=== PATIENT | female | born 1990 | race Caucasian/White ===

== ENCOUNTER 2023-03-21 16:11 | Emergency (ER) | payer MEDICAID, SELFPAY ==
[2023-03-21 16:18] VITALS: BP 133/87; PULSE 77; RESP 16; TEMP 36.7; O2SAT 100; BMI 28.3
[2023-03-21 17:10] VITALS: BP 144/105; PULSE 77; RESP 16; O2SAT 100
--- NOTE | 2023-03-21 17:23 | USR_ITS ---
PROCEDURE INFORMATION: Exam: US Abdomen, Limited; Right Upper Quadrant Exam date and time: 03/21/2023 5:41 PM Age: 32 years old Clinical indication: Abdominal pain; Other: Ruq; Additional info: Ruq pain, n/v with ruq pain. Previous gallbladder issues. Hida in sept TECHNIQUE: Imaging protocol: Real time ultrasound of the abdomen with image documentation. Limited exam focused on the right upper quadrant. COMPARISON: No relevant prior studies available. FINDINGS: Liver: Unremarkable. Gallbladder: No gallstones. No gallbladder wall thickening or pericholecystic fluid. Negative sonographic Bain's sign, as per the performing explosives engineer. Biliary ducts: Normal. No stones. No dilation. Pancreas: Unremarkable as visualized. Right kidney: No mass. No definite stones. No hydronephrosis. US/US abdomen limited [id number] IMPRESSION: No acute sonographic findings.
[2023-03-21 17:29] LABS: Erythrocyte Sedimentation Rate 1 mm/hr (0-15)
[2023-03-21 17:31] LABS: Basophils % 0.4 %; Eosinophils # 0.2 10^3/uL (0.0-0.8); Eosinophils % 2.9 %; Hematocrit 40.5 % (37.0-47.0); Hemoglobin 13.2 g/dL (11.5-15.3); Lymphocytes # 2.1 10^3/uL (0.8-4.8); Lymphocytes % 26.4 %; Mean Corpuscular HGB Conc 32.6 g/dL (30.0-36.0); Mean Platelet Volume 10.2 fL (7.4-10.4); Monocytes # 0.6 10^3/uL (0.2-0.9); Monocytes % 7.1 %; Neutrophils # 4.95 10^3/uL (1.8-7.7); Neutrophils % 63.1 %; Nucleated Red Blood Cells % 0 %; Platelet Count 220 10^3/cmm (130-400); Red Blood Count 4.88 10^6/uL (4.1-5.3); White Blood Count 7.9 10^3/uL (4.0-10.0)
[2023-03-21 17:52] LABS: Alanine Aminotransferase 11 U/L (0-33); Albumin Level 4.5 g/dL (3.5-5.2); Alkaline Phosphatase 56 U/L (35-105); Anion Gap 14.6 (5-19); Aspartate Amino Transferase 10 U/L (0-32); Blood Urea Nitrogen 8 mg/dL (6-20); Carbon Dioxide 24 mmol/L (22-29); Chloride 104 mmol/L (98-107); Glomerular Filtration Rate 114.4 mL/min (90-130); Glucose 76 mg/dL (65-115); Lipase 24 U/L (13-60); Osmolality Calculated 285 mOsm/kg (285-295); Potassium 3.6 mmol/L (3.5-5.1); Sodium 139 mmol/L (136-145); Total Bilirubin 0.6 mg/dL (0.15-1.2); Total Protein 7.5 g/dL (6.6-8.7)
[2023-03-21 18:15] LABS: HCG Qualitative Urine. Negative (Negative)
[2023-03-21] MEDS: sodium chloride 0.9% 1,000 ML 999 ML IV (18:25)
[2023-03-21] MEDS: ketorolac 30 mg/mL INJ 15 MG IVP (18:25)
[2023-03-21 18:26] VITALS: BP 119/78; PULSE 69; RESP 16; O2SAT 100
[2023-03-21 18:45] LABS: Glucose Urine UA Norm (Normal); Ketones Urine 1+ (Negative); Protein Urine Neg (Negative); Specific Gravity, Urine 1.025 (1.005-1.030); Urine Appearance Hazy (CLEAR); Urine Color Yellow (Yellow); pH Urine 5 (5-7)
[2023-03-21 18:46] LABS: Add Urine Microscopic? YES; Amphetamines Screen Urine Negative (Negative); Barbiturates Screen Urine Negative (Negative); Benzodiazepines Screen Urine Negative (Negative); Bilirubin Urine Neg (Negative); Blood Urine Neg (Negative); Cocaine Screen Urine Negative (Negative); Leukocyte Esterase Urine 2+ (Negative); Nitrate Urine Negative (Negative); Opiate Screen Urine Negative (Negative); PCP Screen Urine Negative (Negative); Squamous Epithelial Cell Urine 15-25 /hpf (0-5); THC Screen Urine Negative (Negative); Urobilinogen Urine Norm (Negative)
[2023-03-21 18:47] LABS: Bacteria Urine 2+ /hpf; Mucus Urine 1+ /hpf
[2023-03-21 18:48] LABS: RBC Urine 0-4 /hpf (0-2); WBC Urine 25-40 /hpf (0-5)
--- NOTE | 2023-03-21 19:24 | W.ED.ABDPA2 ---
HPI - Abdominal Pain General: Chief Complaint: Abdominal Pain Stated Complaint: abd pain/N &V Time Seen by Provider: 03/21/23 17:14 Source: patient Mode of arrival: ambulatory Limitations: no limitations History of Present Illness: Patient presents the emergency department today accompanied by family for evaluation treatment of recurrence of right upper quadrant pain. Patient states that for the last year and a half she has had issues with recurrent right upper quadrant pain. She reports 4 previous evaluations for this and states she was told she had a bad gallbladder. However, she was at the time her symptoms started and they indicated they would not be able to intervene until after her . She states that after delivering her child, previous work-ups have found no acute concerns and she is scheduled to see GI and have a HIDA scan in May. Patient states that the last 48 hours she has had severe pain resulting in significant nausea. She has also had some diarrhea today. She denies fevers. Review of Systems General: Reports: 10 or more systems reviewed and unremarkable except in HPI and below Physical Exam Const: COMMON NORMALS: no acute distress, patient oriented x3 and alert HENMT: COMMON NORMALS: normocephalic, atraumatic, hearing grossly normal bilaterally and moist oral mucous membranes HEAD & SCALP: normocephalic and atraumatic Eye: COMMON NORMALS: Equal, round and reactive pupils present, EOMs intact bilaterally and conjunctivae normal CONJUNCTIVA: Yes conjunctivae normal PUPIL: Yes Equal, round and reactive pupils present Neck/C-Spine: COMMON NORMALS: full ROM and no JVD Lymph: LYMPHATIC: no lymphadenopathy noted Resp: COMMON NORMALS: normal respiratory effort, No retractions, No use of accessory muscles and clear to auscultation bilaterally AUSCULTATION: clear to auscultation bilaterally Cardio: COMMON NORMALS: no JVD, regular rate and regular rhythm RATE: regular rate RHYTHM: regular rhythm GI: OTHER: Normoactive bowel sounds. Patient is tender in the epigastric region, right periumbilical region, and right upper quadrant. No lower abdominal tenderness. Abdomen is soft. : COMMON NORMALS: Yes no CVA tenderness BLADDER/KIDNEY EXAM: Yes no CVA tenderness Back/Pelvis: COMMON NORMALS: no CVA tenderness, no thoracic nor lumbar tenderness and thoraco-lumbar ROM normal Extremity: COMMON NORMALS: normal to inspection, full ROM and capillary refill normal Neuro: COMMON NORMALS: patient oriented x3 SENSORIUM/ORIENTATION: Yes alert Psych: COMMON NORMALS: mental status grossly normal, Normal thought process present, cooperative, normal affect and activity/motor behavior normal THOUGHT PROCESS: Normal thought process present Skin: COMMON NORMALS: no rashes or lesions noted and no wounds GENERAL SKIN EXAM: no rashes or lesions noted Course Vital Signs: Vital signs: Vital Signs Temperature 98.0 F 03/21/23 16:18 Pulse Rate 75 03/21/23 19:51 Respiratory Rate 16 03/21/23 19:51 Blood Pressure 133/84 03/21/23 19:51 Pulse Oximetry 99 03/21/23 19:51 Oxygen Delivery Me thod Room Air 03/21/23 19:51 MDM - Abdominal Pain Medical Decision Making Patient presents emergency department today with recurrent episodes of right upper quadrant pain. Unfortunately, patient's lab work today is generally unremarkable and cannot confirm specific reason for right upper quadrant pain and ultrasound revealed no signs of sludge, cholecystitis, or gallstones. I still think the patient needs a HIDA scan given the location and regularity of her pain. They do request a referral through our hospital system to see if she can get in and be evaluated sooner. I did place that referral on her behalf. Patient is discharged with antinausea medication. She is also discharged with pain medication provided through Dr. Montelongo. Had a long talk with the patient regarding HIDA scans and biliary dysfunction. Explained to her though that change or worsening of her symptoms still warrants an evaluation-even if she has had negative work-ups in the past as things like fever and vomiting without ability to tolerate fluids could all indicate a change or worsening in her condition for which she needs to be seen and reevaluated. Patient verbalized understanding and agreement to treatment plan. Lab Data 03/21/23 17:18 03/21/23 17:18 Labs/Radiology: Radiology Impressions Abdomen Ultrasound 03/21/23 17:23 IMPRESSION: No acute sonographic findings. Laboratory Results WBC 7.9 10^3/uL (4.0-10.0) 03/21/23 17:18 RBC 4.88 10^6/uL (4.1-5.3) 03/21/23 17:18 Hgb 13.2 g/dL (11.5-15.3) 03/21/23 17:18 Hct 40.5 % (37.0-47.0) 03/21/23 17:18 MCV 83.0 fl (81-99) 03/21/23 17:18 MCH 27.0 pg (28.0-34.0) L 03/21/23 17:18 MCHC 32.6 g/dL (30.0-36.0) 03/21/23 17:18 RDW 13.0 % (12.1-15.1) 03/21/23 17:18 Plt Count 220 10^3/cmm (130-400) 03/21/23 17:18 MPV 10.2 fL (7.4-10.4) 03/21/23 17:18 Neut % (Auto) 63.1 % 03/21/23 17:18 Lymph % (Auto) 26.4 % 03/21/23 17:18 [place] % (Auto) 7.1 % 03/21/23 17:18 Eos % (Auto) 2.9 % 03/21/23 17:18 Baso % (Auto) 0.4 % 03/21/23 17:18 Neut # (Auto) 4.95 10^3/uL (1.8-7.7) 03/21/23 17:18 Lymph # (Auto) 2.1 10^3/uL (0.8-4.8) 03/21/23 17:18 Greenlee # (Auto) 0.6 10^3/uL (0.2-0.9) 03/21/23 17:18 Eos # (Auto) 0.2 10^3/uL (0.0-0.8) 03/21/23 17:18 Baso # (Auto) 0.0 10^3/uL (0.0-0.1) 03/21/23 17:18 Nucleated RBC % (auto) 0 % 03/21/23 17:18 Nucleated RBCs # 0.0 /100WBC 03/21/23 17:18 ESR 1 mm/hr (0-15) 03/21/23 17:18 Sodium 139 mmol/L (136-145) 03/21/23 17:18 Potassium 3.6 mmol/L (3.5-5.1) 03/21/23 17:18 Chloride 104 mmol/L (98-107) 03/21/23 17:18 Carbon Dioxide 24 mmol/L (22-29) 03/21/23 17:18 Anion Gap 14.6 (5-19) 03/21/23 17:18 BUN 8 mg/dL (6-20) 03/21/23 17:18 Creatinine 0.6 mg/dL (0.5-0.9) 03/21/23 17:18 GFR Calculation 114.4 mL/min (90-130) 03/21/23 17:18 Glucose 76 mg/dL (65-115) 03/21/23 17:18 Calculated Osmolality 285 mOsm/kg (285-295) 03/21/23 17:18 Calcium 9.0 mg/dL (8.5-10.5) 03/21/23 17:18 Total Bilirubin 0.6 mg/dL (0.15-1.2) 03/21/23 17:18 AST 10 U/L (0-32) 03/21/23 17:18 ALT 11 U/L (0-33) 03/21/23 17:18 Alkaline Phosphatase 56 U/L (35-105) 03/21/23 17:18 C-Reactive Protein 3.0 mg/L (0.0-4.9) 03/21/23 17:18 Total Protein 7.5 g/dL (6.6-8.7) 03/21/23 17:18 Albumin 4.5 g/dL (3.5-5.2) 03/21/23 17:18 Globulin 3.0 g/dL (1.3-4.6) 03/21/23 17:18 Lipase 24 U/L (13-60) 03/21/23 17:18 HCG, Qual Negative (Negative) 03/21/23 18:02 Urine Color Yellow (Yellow) 03/21/23 18:02 Urine Appearance Hazy (CLEAR) A 03/21/23 18:02 Urine pH 5 (5-7) 03/21/23 18:02 Ur Specific [place] 1.025 (1.005-1.030) 03/21/23 18:02 Urine Protein Neg (Negative) 03/21/23 18:02 Urine Glucose (UA) Norm (Normal) 03/21/23 18:02 Urine Ketones 1+ (Negative) H 03/21/23 18:02 Urine Blood Neg (Negative) 03/21/23 18:02 Urine Nitrate Negative (Negative) 03/21/23 18:02 Urine Bilirubin Neg (Negative) 03/21/23 18:02 Urine Urobilinogen Norm mg/dL (Negative) 03/21/23 18:02 Ur Leukocyte Esterase 2+ (Negative) H 03/21/23 18:02 Urine RBC 0-4 /hpf (0-2) H 03/21/23 18:02 Urine WBC 25-40 /hpf (0-5) H 03/21/23 18:02 Ur Squamous Epith Cells 15-25 /hpf (0-5) H 03/21/23 18:02 Amorphous Sediment Not Reportable 03/21/23 18:02 Urine Bacteria 2+ /hpf (NONE) H 03/21/23 18:02 Urine Mucus 1+ /hpf 03/21/23 18:02 Urine Opiates Screen Negative ng/mL (Negative) 03/21/23 18:02 Ur Barbiturates Screen Negative ng/mL (Negative) 03/21/23 18:02 Ur Phencyclidine Scrn Negative ng/mL (Negative) 03/21/23 18:02 Ur Amphetamines Screen Negative ng/mL (Negative) 03/21/23 18:02 U Benzodiazepines Scrn Negative ng/mL (Negative) 03/21/23 18:02 Urine Cocaine Screen Negative ng/mL (Negative) 03/21/23 18:02 U Marijuana (THC) Screen Negative ng/mL (Negative) 03/21/23 18:02 Discharge Plan Discharge Patient Disposition: Home Clinical Impression: Abdominal pain, right upper quadrant Condition: Stable Prescriptions: New ondansetron 4 mg tablet,disintegrating 4 mg PO Q8H 5 Days Qty: 15 0RF Discharge Orders: Discharge ED (Routine); Ordered 03/21/23 Ordered By: Shweta Aguilar Referrals: Maira Hinds, PROSTHETIC AIDE [Primary Care Provider] - Discharge Diet: As Directed Discharge Activity: Increase activity as tolerated Patient Instructions: Low Fat Diet (ED), HIDA Scan (DC), Abdominal Pain (ED) Activity Restrictions/Additional Instructions: Evaluation today is generally unremarkable. Ultrasound found no gallbladder sludge, stones, or wall thickening concerning for infection. I do think it is a good idea to proceed on with a HIDA scan however, as we discussed, we can try referring you to GI through [facility] to see if you can be evaluated sooner than May. Until then we are providing you antinausea medication as well as a short course of some pain medicine to help you with your symptoms. I have also included some information regarding some diet changes to help with gallbladder issues as well as information regarding HIDA scans for your reference at home. If you develop fever, vomiting without ability to tolerate fluids or medication, or change or worsening of your pain you do need to be seen and reevaluated again. Coding Level of Care Code ED [facility] Justice for John Adam
[2023-03-21 19:51] VITALS: BP 133/84; PULSE 75; RESP 16; O2SAT 99
--- NOTE | 2023-03-24 08:51 | DCPLANNER ---
Addendum entered by Renee Tyler 04/01/23 14:02: thoroughbred horse farm manager received the following message from the general surgery front office regarding follow up appointment: vmb full 03/28 >> mailing letter due to no contact On 03/27/23 @ 15:45 Benjy Florez Wrote To General Surgery Front Off called patient and vmb is full 03/27 On 03/26/23 @ 13:59 Benjy Florez Wrote To General Surgery Front Off left message 03/26 Original Note: thoroughbred horse farm manager had message to schedule a follow up appointment for patient with general surgery. thoroughbred horse farm manager sent patients information to the front office staff at general surgery. Patients information will be printed and reviewed. Clinic will call patient with appointment information.
== END 2023-03-21 20:25 | disposition home or self-care (01) ==
PROVIDERS: Emergency Provider Physician Assistant; PCP Nurse Practitioner
DX: R10.11 Right upper quadrant pain (principal)
CPT/HCPCS: 76705; 80053; 80306; 81001; 81025; 83690; 85025; 85651; 86140; 96374; 99284; J1885; J7030